=== PATIENT | female | born 1955 | race Caucasian/White ===

== ENCOUNTER → 2019-12-11 10:00 | Outpatient (BNVA) | payer SELFPAY | PROVIDERS: Family Provider Nurse Practitioner; PCP Nurse Practitioner; Visit Provider Nurse Practitioner Family | DX: R31.0 Gross hematuria (principal); R17 Unspecified jaundice; K92.1 Melena; F10.29 Alcohol dependence with unspecified alcohol-induced disorder; Z86.718 Personal history of other venous thrombosis and embolism; R26.81 Unsteadiness on feet | CPT/HCPCS: 80053; 85025 ==

== ENCOUNTER → 2019-12-14 08:54 | Outpatient (BNVA) | payer SELFPAY | PROVIDERS: Family Provider Nurse Practitioner; PCP Nurse Practitioner; Visit Provider Nurse Practitioner | DX: R31.0 Gross hematuria (principal) | CPT/HCPCS: 81003; 87077; 87086; 87186 ==

== ENCOUNTER 2019-12-18 13:07 | Outpatient (CLI) | payer SELFPAY ==
--- NOTE | 2019-12-18 13:00 | CT_ITS ---
WS: [id number] CT ABDOMEN PELVIS TECHNIQUE: Noncontrast CT of the abdomen and contrast-enhanced CT of the abdomen and pelvis with blaise nal and sagittal reformatted images. CLINICAL INFORMATION: hematuria, jaundice, and bloody stool COMPARISON: 9 4,019 DLP: 4583.[address] scans at [facility] use at least one of these dose optimization techniques: automat ed exposure control; mA and/or kV adjustment per patient size (includes targeted exams where dose is matched to clinical indication); or iterative reconstruction. FINDINGS: Mild diffuse fatty infiltration of the liver. Heterogeneous liver enhancement. Portal vein and spleni c vein are patent. Mild gallbladder wall thickening with a small amount of fluid in the gallbladder f armando likely due to hepatic disease. Small amount of perihepatic and perisplenic ascites. Small left g reater than right pleural effusions with subsegmental atelectasis in the lung bases. Postoperative ch anges at the GE junction. Small hiatal hernia. Adrenal glands are normal. Normal renal parenchymal en hancement. No hydronephrosis. Fatty atrophy of the pancreas. Normal caliber abdominal aorta. Small amount of ascites in the pelvis. Right DONALD. Normal sigmoid colon. No evidence of small or large bowel obstruction. Normal excretion on the delayed images. Moderate degenerative arthritis lumbar sp ine. CT/CT abdomen pelvis wo/w [address] IMPRESSION: 1. Diffuse fatty infiltration liver with heterogeneous enhancement suspicious for hepatocellular disease. Recommend correlation with liver function tests. 2. Small volume perihepatic and perisplenic ascites with a small amount of as cites in the pelvis. 3. Gallbladder wall thickening with small amount of fluid in the gallbladder f armando likely due to hepatic disease. 4. Small left greater than right pleural effusions with subsegmental atelectas is in the lung bases. 5. Postoperative changes at the GE junction with a small hiatal hernia. 6. Normal bilateral renal parenchymal enhancement. No hydronephrosis. Both ure ters are decompressed. 7. Normal caliber abdominal aorta.
[2019-12-18] MEDS: iohexol 300 mg/mL 100 mL Btl IV (14:30)
[2019-12-18] MEDS: iohexol 300 mg/mL 50 mL Btl PO (14:35)
== END 2019-12-18 13:08 | disposition home or self-care (01) ==
LOC: RAD 13:11
PROVIDERS: Family Provider Nurse Practitioner; PCP Nurse Practitioner; Visit Provider Nurse Practitioner Family
DX: K76.0 Fatty (change of) liver, not elsewhere classified (principal); K92.1 Melena; R17 Unspecified jaundice; J90 Pleural effusion, not elsewhere classified; K44.9 Diaphragmatic hernia without obstruction or gangrene; R31.0 Gross hematuria; R18.8 Other ascites; J98.11 Atelectasis
CPT/HCPCS: 74178

== ENCOUNTER 2019-12-21 16:38 | Emergency (ER) | payer SELFPAY ==
[2019-12-21 16:40] VITALS: BP 101/64; PULSE 74; RESP 18; TEMP 36.4; O2SAT 97; BMI 29.5
--- NOTE | 2019-12-21 16:43 | ED_ITS ---
Entered by Peyton Winters, acting as scribe for HPI - GI Bleed General: Chief complaint: GI Bleed Stated complaint: POSSIBLE JAUNDICE, POSSIBLE GI BLEED Time Seen by Provider: 12/21/19 16:41 Source: patient, family and EMS Mode of arrival: EMS Limitations: no limitations History of Present Illness: HPI Narrative: 64 yo Female presents to ED with complaint of possible GI bleed and jaundice. Pt and spouse state that the patient is having black, tarry stools. Pt's spouse states that patient has had blood work, urine testing, and CT scan done in the past 10 days. Pt states that she has had bilateral lower extremity weakness for the past couple of weeks but has been unable to walk the past 3-4 days. Pt states that she has felt very fatigued. Pt's spouse also states that the patient is now incontinent of bowel and bladder. MD complaint: other (black, tarry stools) Onset (ago): week(s) Pain Consistency: constant Relieving factors: none Exacerbating factors: none Associated symptoms: Reports poor appetite, weakness and other (jaundice); Denies abdominal pain, chills, easy bruising, fever(s), headache(s), nausea, rash or vomiting Review of Systems Const: Reports: fatigue; Denies: fever or chills Eyes: Denies: change in vision ENMT: Denies: throat pain or mouth pain Card: Denies: chest pain Resp: Denies: shortness of breath GI: Reports: black tarry stool; Denies: abdominal pain, nausea, vomiting or diarrhea : Denies: difficulty urinating Musc: Denies: back pain or joint pain Skin/Breast: Reports: yellow skin; Denies: rash Neuro: Reports: weakness in extremities (lower extremities); Denies: headache or behavioral changes Psych: Denies: depression Endo: Denies: excessive urination Aj/Lymph: Denies: easy bruising All/Imm: Denies: hives PFSH ED PFSH: Statuses (acute, chronic, etc) shown below reflect problem list status as previously entered and may not be historically accurate Medical History Alcohol dependence (Chronic) Anxiety (Acute) Diabetes mellitus (Chronic) Edema of extremities (Acute) Essential hypertension (Chronic) History of deep venous thrombosis (DVT) of distal vein of left lower extremity (Acute) Hx of thrombocytopenia (Chronic) Hypertriglyceridemia (Acute) Hyponatremia (Chronic) Liver cirrhosis, alcoholic (Chronic) Osteoarthritis (Acute) Surgical History History of total hip replacement (Acute) right 2005 Hx of gastric bypass (Acute) 2012 Hx of lumpectomy (Acute) left 2007 Family History Father Hyperlipidemia Social History Smoking and tobacco status: never smoked Second hand smoke exposure: No Smoking risk assessment/counseling performed?: No Alcohol intake: current Alcohol intake frequency: 0-2 Drinks per Day Alcohol type: wine Desire information about alcohol rehabilitation?: No Counseling given: No Desire information about substance/drug rehabilitation?: No Counseling given: No Caregiver/support person: No Lives independently: Yes Household members: significant other Marital status: Single Current occupational status: unemployed History of recent travel: No Current gender identity: Female Physical Exam Const: COMMON NORMALS: no apparent distress, oriented x3 and healthy appearing HENMT: COMMON NORMALS: normocephalic and external nose normal HEAD & SCALP: normocephalic NOSE: external nose normal Eye: COMMON NORMALS: PERRL PUPIL: Yes PERRL Neck/C-Spine: COMMON NORMALS: full ROM and no lymphadenopathy Chest: COMMONS NORMALS: inspection of chest normal Resp: COMMON NORMALS: normal respiratory effort, no use of accessory muscles and clear to auscultation bilaterally AUSCULTATION: clear to auscultation bilaterally Cardio: COMMON NORMALS: regular rate and regular rhythm RATE: regular rate RHYTHM: regular rhythm GI: COMMON NORMALS: normal to inspection, nondistended, normoactive bowel sounds, soft to palpation, non-tender and no masses PALPATION: Yes soft Back/Pelvis: THORACIC SPINE/UPPER BACK: Yes normal to inspection Extremity: COMMON NORMALS: normal to inspection, full ROM and normal capillary refill Neuro: COMMON NORMALS: oriented x3 Psych: COMMON NORMALS: mental status grossly normal and cooperative Skin: COMMON NORMALS: no rashes or lesions noted; negative for no jaundice GENERAL SKIN EXAM: no rashes or lesions noted and jaundice Course Vital Signs: Vital signs: Vital Signs Temperature 97.5 F L 12/21/19 16:40 Pulse Rate 74 12/21/19 16:40 Respiratory Rate 18 12/21/19 16:40 Blood Pressure 101/64 12/21/19 16:40 Pulse Oximetry 97 12/21/19 16:40 MDM - GI Bleed MDM Narrative: Medical decision making narrative: Patient presents here with likely liver failure from alcoholic hepatitis. Patient's bilirubin is increasing and is 7.6 here. INR is elevated as well. Patient's ultrasound here showed no common bile duct dilatation. She had a CT scan 10 days ago that showed hepatocellular disease with no other significant findings. I spoke to physician at [facility] and will transfer there for higher level of care for GI as we have no GI physicians here. Lab Data: Labs: Lab Results 12/21/19 12/21/19 12/21/19 Range/Units 16:57 16:57 16:57 WBC 6.3 (4.0-10.0) 10^3/ uL RBC 2.85 L (4.1-5.3) 10^6/u L Hgb 10.5 L (11.5-15.3) g/dL Hct 29.3 L (37.0-47.0) % MCV 102.8 H (81-99) fL MCH 36.8 H (28.0-34.0) pg MCHC 35.8 (30.0-36.0) g/dL RDW 15.4 H (12.1-15.1) % Plt Count 84 L (130-400) 10^3/c mm MPV 11.9 H (7.4-10.4) fL Neut % (Auto) 77.1 % Lymph % (Auto) 11.6 % [place] % (Auto) 10.5 % Eos % (Auto) 0.3 % Baso % (Auto) 0.2 % Neut # (Auto) 4.9 (1.8-7.7) 10^3/u L Lymph # (Auto) 0.7 L (0.8-4.8) 10^3/u L [place] # (Auto) 0.7 (0.2-0.9) 10^3/u L Eos # (Auto) 0.0 (0.0-0.8) 10^3/u L Baso # (Auto) 0.0 (0.0-0.1) 10^3/u L Nucleated RBC % (a uto) 0 % Nucleated RBCs # 0.0 /100WBC PT 22.20 H (10.5-13.3) SECO NDS INR 1.87 H (0.8-1.2) Sodium 129 L (136-145) mmol/L Potassium 2.8 L* (3.5-5.1) mmol/L Chloride 88 L (98-107) mmol/L Carbon Dioxide 24 (22-29) mmol/L Anion Gap 19.8 H (5-19) BUN 3 L (8-23) mg/dL Creatinine 0.9 (0.5-0.9) mg/dL GFR Calculation 63.4 L (90-130) mL/min Glucose 99 (74-106) mg/dL Lactic Acid (0.5-2.2) mmol/L Calcium 8.7 L (8.8-10.2) mg/Dl Total Bilirubin 7.6 H* (0.15-1.2) mg/dL AST 151 H (0-32) U/L ALT 52 H (0-33) U/L Alkaline Phosphata se 170 H (35-105) IU/L Total Protein 6.9 (6.6-8.7) g/dL Albumin 2.5 L (3.5-5.2) g/dL Globulin 4.4 (1.3-4.6) g/dL Hepatitis A IgM Ab (Nonreactive) Hep Bs Antigen (Nonreactive) Hep Bs Antibody (0-8.5) Hep B Core Total A b (Nonreactive) Hepatitis C Antibo dy (Nonreactive) 12/21/19 12/21/19 Range/Units 16:57 16:57 WBC (4.0-10.0) 10^3/ uL RBC (4.1-5.3) 10^6/u L Hgb (11.5-15.3) g/dL Hct (37.0-47.0) % MCV (81-99) fL MCH (28.0-34.0) pg MCHC (30.0-36.0) g/dL RDW (12.1-15.1) % Plt Count (130-400) 10^3/c mm MPV (7.4-10.4) fL Neut % (Auto) % Lymph % (Auto) % [place] % (Auto) % Eos % (Auto) % Baso % (Auto) % Neut # (Auto) (1.8-7.7) 10^3/u L Lymph # (Auto) (0.8-4.8) 10^3/u L [place] # (Auto) (0.2-0.9) 10^3/u L Eos # (Auto) (0.0-0.8) 10^3/u L Baso # (Auto) (0.0-0.1) 10^3/u L Nucleated RBC % (a uto) % Nucleated RBCs # /100WBC PT (10.5-13.3) SECO NDS INR (0.8-1.2) Sodium (136-145) mmol/L Potassium (3.5-5.1) mmol/L Chloride (98-107) mmol/L Carbon Dioxide (22-29) mmol/L Anion Gap (5-19) BUN (8-23) mg/dL Creatinine (0.5-0.9) mg/dL GFR Calculation (90-130) mL/min Glucose (74-106) mg/dL Lactic Acid 5.5 H* (0.5-2.2) mmol/L Calcium (8.8-10.2) mg/Dl Total Bilirubin (0.15-1.2) mg/dL AST (0-32) U/L ALT (0-33) U/L Alkaline Phosphata se (35-105) IU/L Total Protein (6.6-8.7) g/dL Albumin (3.5-5.2) g/dL Globulin (1.3-4.6) g/dL Hepatitis A IgM Ab Non-reactive (Nonreactive) Hep Bs Antigen Non-reactive (Nonreactive) Hep Bs Antibody 3.5 (0-8.5) Hep B Core Total A b Non-reactive (Nonreactive) Hepatitis C Antibo dy Non-reactive (Nonreactive) Discharge Plan Discharge Patient Disposition: Xfer Other Clinical Impression: Liver cirrhosis, alcoholic, Hyperbilirubinemia Condition: Stable Prescriptions: No Action venlafaxine 75 mg tablet 75 mg PO DAILY RF: 0 buspirone 5 mg tablet 5 mg PO BID RF: 0 lisinopril 10 mg tablet 10 mg PO DAILY RF: 0 gemfibrozil 600 mg tablet 600 mg PO BID RF: 0 metoprolol succinate 25 mg tablet extended release 24 hr 12.5 mg PO DAILY RF: 0 furosemide [Lasix] 20 mg tablet 20 mg PO DAILY RF: 0 metformin 500 mg tablet 500 mg PO BID RF: 0 sodium chloride 1 gram tablet 1,000 mg PO DAILY RF: 0 valacyclovir 500 mg tablet 500 mg PO DAILY PRNRF: 0 cholecalciferol (vitamin D3) 5,000 unit tablet 5,000 unit PO ONCE RF: 0 biotin PO RF: 0 calcium as directed RF: 0 iron as directed RF: 0 fish oil as directed RF: 0 vitamin b 12 as directed RF: 0 multivitamin [Multiple Vitamins] Tablet 1 tab PO QAM RF: 0 ciprofloxacin HCl 500 mg tablet 500 mg PO Q12H 10 Days Qty: 20 RF: 0 Discharge Orders: Transfer Out of Facility (Order); Ordered 12/21/19 Ordered By: Gina Ortega Referrals: David Cool, [facility] [Primary Care Provider] - Coding Level of Care Code ED Damascener for Chg Fwd Exam Problem Focused The documentation recorded by the Vianey boyer Carmen, accurately reflects the service I personally performed and the decisions made by Jordan winston Korby, MD Dec 21, 2019 16:38
--- NOTE | 2019-12-21 16:49 | US_ITS ---
WS: [id number] ULTRASOUND ABDOMEN LIMITED CLINICAL INFORMATION: abd pain COMPARISON: None. FINDINGS: Liver Size: Enlarged Craniocaudal length: 21.0 cm. Echogenicity: Coarse consistent with fatty infiltration Surface nodularity: None. Mass (size and location): None. Bile ducts Intrahepatic ducts: Normal. Common bile duct diameter: 3.0 mm. Gallbladder Sludge with hydrops Gallstones: None. Gallbladder sludge: Present Gallbladder wall thickening: None. Pericholecystic fluid: None. Sonographic Thomas sign: Absent. Pancreas Not well seen Right kidney: Normal. Hydronephrosis: None. Size: 10.6 cm x 5.1 cm x 4.3 cm. Abdominal aorta and IVC Visualized portions are normal. Ascites: None. US/US gall bladder [id number] IMPRESSION: 1. Hepatomegaly with diffuse fatty infiltration. 2. Hydropic gallbladder with sludge. No cholelithiasis. Normal common bile kimi t. No significant gallbladder wall thickening. 3. Partial reversed flow in the portal vein suspicious for portal hypertension 4. No hydronephrosis in right kidney.
[2019-12-21 17:10] LABS: Basophils % 0.2 %; Eosinophils % 0.3 %; Hematocrit 29.3 % (37.0-47.0); Hemoglobin 10.5 g/dL (11.5-15.3); Lymphocytes # 0.7 10^3/uL (0.8-4.8); Lymphocytes % 11.6 %; Mean Corpuscular HGB Conc 35.8 g/dL (30.0-36.0); Mean Corpuscular Hemoglobin 36.8 pg (28.0-34.0); Mean Corpuscular Volume 102.8 fL (81-99); Mean Platelet Volume 11.9 fL (7.4-10.4); Monocytes # 0.7 10^3/uL (0.2-0.9); Monocytes % 10.5 %; Neutrophils # 4.9 10^3/uL (1.8-7.7); Neutrophils % 77.1 %; Nucleated Red Blood Cells % 0 %; Platelet Count 84 10^3/cmm (130-400); Red Blood Count 2.85 10^6/uL (4.1-5.3); Red Cell Distribution Width 15.4 % (12.1-15.1); White Blood Count 6.3 10^3/uL (4.0-10.0)
[2019-12-21 17:12] LABS: INR 1.87 (0.8-1.2)
[2019-12-21 17:18] LABS: Alanine Aminotransferase 52 U/L (0-33); Albumin Level 2.5 g/dL (3.5-5.2); Alkaline Phosphatase 170 IU/L (35-105); Anion Gap 19.8 (5-19); Aspartate Amino Transferase 151 U/L (0-32); Blood Urea Nitrogen 3 mg/dL (8-23); Calcium 8.7 mg/Dl (8.8-10.2); Carbon Dioxide 24 mmol/L (22-29); Chloride 88 mmol/L (98-107); Globulin 4.4 g/dL (1.3-4.6); Glomerular Filtration Rate 63.4 mL/min (90-130); Glucose 99 mg/dL (74-106); Sodium 129 mmol/L (136-145); Total Protein 6.9 g/dL (6.6-8.7)
[2019-12-21 17:21] LABS: Potassium 2.8 mmol/L (3.5-5.1)
[2019-12-21 17:22] LABS: Total Bilirubin 7.6 mg/dL (0.15-1.2)
[2019-12-21 17:48] LABS: Hepatitis A Antibody IgM. Non-Reactive (Nonreactive); Hepatitis B Surface AB. 3.5 (0-8.5); Hepatitis B Surface Antigen. Non-Reactive (Nonreactive); Hepatitis C Virus Antibody Non-Reactive (Nonreactive)
[2019-12-21] MEDS: sodium chloride 0.9% 1,000 ML 999 ML IV (18:34)
[2019-12-21 18:45] LABS: Lactic Acid 5.5 mmol/L (0.5-2.2)
[2019-12-21 19:00] VITALS: BP 129/87; PULSE 83; RESP 16; O2SAT 95
[2019-12-21 21:00] VITALS: BP 112/66; PULSE 77; RESP 16; O2SAT 92
[2019-12-21 22:00] VITALS: BP 108/68; PULSE 77; RESP 18; O2SAT 92
[2019-12-21 23:00] VITALS: BP 108/68; PULSE 77; RESP 16; O2SAT 92
[2019-12-22] VITALS (12 sets, daily range): BP systolic 84–117; BP diastolic 50–75; PULSE 71–82; RESP 12–18; O2SAT 91–98
[2019-12-22 05:06] LABS: Partial Thromboplastin Time 20.3 SECONDS (23.9-36.7)
[2019-12-22 05:10] LABS: Alanine Aminotransferase 45 U/L (0-33); Albumin Level 1.9 g/dL (3.5-5.2); Alkaline Phosphatase 138 IU/L (35-105); Anion Gap 15.7 (5-19); Aspartate Amino Transferase 139 U/L (0-32); Blood Urea Nitrogen 4 mg/dL (8-23); Calcium 8.2 mg/Dl (8.8-10.2); Carbon Dioxide 24 mmol/L (22-29); Chloride 92 mmol/L (98-107); Globulin 4.1 g/dL (1.3-4.6); Glucose 87 mg/dL (74-106); Sodium 129 mmol/L (136-145)
[2019-12-22 05:15] LABS: Basophils % 0.4 %; Eosinophils % 0.7 %; Hemoglobin 10.2 g/dL (11.5-15.3); Lymphocytes # 0.9 10^3/uL (0.8-4.8); Lymphocytes % 15.6 %; Mean Corpuscular Hemoglobin 37.9 pg (28.0-34.0); Mean Corpuscular Volume 111.5 fL (81-99); Monocytes # 0.7 10^3/uL (0.2-0.9); Monocytes % 12.1 %; Neutrophils # 4.1 10^3/uL (1.8-7.7); Neutrophils % 70.8 %; Nucleated Red Blood Cells % 0 %; Platelet Count 63 10^3/cmm (130-400); Red Blood Count 2.69 10^6/uL (4.1-5.3); Red Cell Distribution Width 15.8 % (12.1-15.1); White Blood Count 5.7 10^3/uL (4.0-10.0)
[2019-12-22 05:33] LABS: Potassium 2.7 mmol/L (3.5-5.1)
[2019-12-22 06:08] LABS: Magnesium 2.1 mg/dL (1.7-2.3)
--- NOTE | 2019-12-22 06:24 | PC.NURSE ---
Patient report lower abdomen soreness, no other complaint. Offered Bathroom, drink and food, patient stated no needs at this point.
--- NOTE | 2019-12-22 07:11 | PC.NURSE ---
report received from XIOMARA De La Rosa
[2019-12-22] MEDS: dextrose 5%-ns + KCl 20 20 MEQ/1,000 ML BAG 100 MEQ IV (07:41)
--- NOTE | 2019-12-22 16:57 | PC.NURSE ---
HOURLY VITAL PER MONITOR PRINT OUT
== END 2019-12-22 18:10 | disposition other institution (70) ==
PROVIDERS: Emergency Medicine; Emergency Provider Emergency Medicine; Family Provider Nurse Practitioner; PCP Nurse Practitioner
DX: K70.30 Alcoholic cirrhosis of liver without ascites (principal); E80.6 Other disorders of bilirubin metabolism; Z79.84 Long term (current) use of oral hypoglycemic drugs; E11.9 Type 2 diabetes mellitus without complications; I10 Essential (primary) hypertension
CPT/HCPCS: 36415; 76705; 80053; 83605; 83735; 85025; 85610; 85730; 86705; 86706; 86709; 86803; 86850; 86900; 87340; 96360; 96365; 96366; 99282; J7030